=== PATIENT | female | born 1960 | race Caucasian/White ===

== ENCOUNTER 2017-01-02 12:27 | Outpatient (CLI) | payer OTHER ==
[2017-01-02 13:54] LABS: #Basophils 0.1 thou/uL (0.0-0.2); #Eosinphils 0.1 thou/uL (0.0-0.7); #Lymphocytes 1.4 thou/uL (1.20-3.40); #Monocytes 0.7 thou/uL (0.11-0.59); #Neutrophils 5.1 thou/uL (1.40-6.50); %Basophils 0.8 % (0.0-1.0); %Eosinophils 1.8 % (0.0-10.0); %Lymphocytes 18.3 % (21.0-51.0); %Monocytes 10.1 % (0.0-10.0); Hematocrit 39.1 % (36.0-47.0); Mean Platelet Volume 6.3 fL (7.4-10.4); Red Blood Cell (RBC) Count 4.47 mill/uL (4.20-5.40); White Blood Cell (WBC) Count 7.4 thou/uL (4.8-10.8)
[2017-01-02 14:17] LABS: ALT (SGPT) 19 U/L (0-55); AST (SGOT) 17 U/L (5-34); Alkaline Phosphatase 89 U/L (40-150); Anion Gap 15 mmol/L (10-20); BUN (Urea Nitrogen) 18 mg/dL (9.8-20.1); Bilirubin, Direct 0.2 mg/dL (0.1-0.3); Bilirubin, Total 0.5 mg/dL (0.2-1.2); Calc. Creatinine Clearance 0 mL/min (70-130); Calcium 9.4 mg/dL (7.8-10.44); Carbon Dioxide 22 mmol/L (22-29); Chloride 103 mmol/L (98-107); Estimated GFR-MDRD 45; Hemoglobin A1c 6.9 % (4.0-6.0); LDL Cholesterol, Calculated 87 mg/dL; Protein, Total 7.2 g/dL (6.0-8.3)
== END 2017-01-02 12:28 | disposition home or self-care (01) ==
LOC: NAVSJIPCSP 12:27
PROVIDERS: ATTEND Family Medicine
DX: E78.00 Pure hypercholesterolemia, unspecified (principal); E88.81 Metabolic syndrome and other insulin resistance; E03.9 Hypothyroidism, unspecified; I10 Essential (primary) hypertension; Z79.899 Other long term (current) drug therapy
CPT/HCPCS: 36415; 80048; 80061; 80076; 83036; 84443; 85025

== ENCOUNTER 2017-07-22 09:31 | Outpatient (CLI) | payer OTHER ==
[2017-07-22 12:39] LABS: #Eosinphils 0.1 thou/uL (0.0-0.7); #Lymphocytes 1.5 thou/uL (1.20-3.40); #Monocytes 0.5 thou/uL (0.11-0.59); #Neutrophils 3.3 thou/uL (1.40-6.50); %Basophils 0.9 % (0.0-1.0); %Eosinophils 1.9 % (0.0-10.0); %Lymphocytes 27.9 % (21.0-51.0); %Monocytes 8.4 % (0.0-10.0); %Neutrophils 60.9 % (42.0-75.0); Hemoglobin 11.9 g/dL (12.0-16.0); Mean Corpuscular HGB CONC 32.5 g/dL (32.0-36.0); Mean Corpuscular Hemoglobin 28.8 pg (27.0-31.0); Mean Corpuscular Volume 88.6 fl (81.0-99.0); Mean Platelet Volume 6.6 fL (7.4-10.4); Platelet Count 235 thou/uL (130-400); RBC Distribution Width 12.6 % (11.5-14.5); Red Blood Cell (RBC) Count 4.12 mill/uL (4.20-5.40); White Blood Cell (WBC) Count 5.4 thou/uL (4.8-10.8)
[2017-07-22 12:52] LABS: ALT (SGPT) 41 U/L (8-55); AST (SGOT) 42 U/L (5-34); Albumin 4.3 g/dL (3.5-5.0); Alkaline Phosphatase 89 U/L (40-150); Anion Gap 17 mmol/L (10-20); BUN (Urea Nitrogen) 20 mg/dL (9.8-20.1); Bilirubin, Total 0.5 mg/dL (0.2-1.2); Calc. Creatinine Clearance 0 mL/min (70-130); Calcium 9.3 mg/dL (7.8-10.44); Carbon Dioxide 20 mmol/L (22-29); Chloride 105 mmol/L (98-107); Estimated GFR-MDRD 46; Globulin 2.7 g/dL (2.4-3.5); Glucose 88 mg/dL (70-105); Potassium 4.5 mmol/L (3.5-5.1); Sodium 137 mmol/L (136-145)
[2017-07-23 08:29] LABS: Cardiac Risk 3.1 (Less than 4.5)
[2017-07-23 08:39] LABS: Hemoglobin A1c 5.2 % (4.0-6.0)
== END 2017-07-22 09:32 | disposition home or self-care (01) ==
LOC: NAVSJIPCSP 09:31
PROVIDERS: ATTEND Family Medicine
DX: E78.00 Pure hypercholesterolemia, unspecified (principal); E03.9 Hypothyroidism, unspecified; E11.9 Type 2 diabetes mellitus without complications; E88.81 Metabolic syndrome and other insulin resistance; Z79.899 Other long term (current) drug therapy
CPT/HCPCS: 36415; 80053; 80061; 83036; 84443; 85025

== ENCOUNTER 2017-09-30 18:20 | Emergency (ER) | payer OTHER ==
[2017-09-30 19:22] LABS: #Basophils 0.1 thou/uL (0.0-0.2); #Eosinphils 0.1 thou/uL (0.0-0.7); #Lymphocytes 2.3 thou/uL (1.20-3.40); #Monocytes 0.7 thou/uL (0.11-0.59); #Neutrophils 4.9 thou/uL (1.40-6.50); %Basophils 0.9 % (0.0-1.0); %Eosinophils 1.3 % (0.0-10.0); %Neutrophils 60.8 % (42.0-75.0); Hemoglobin 12.2 g/dL (12.0-16.0); Mean Corpuscular HGB CONC 31.3 g/dL (32.0-36.0); Mean Corpuscular Volume 92.7 fl (81.0-99.0); Mean Platelet Volume 7.5 fL (7.4-10.4); Platelet Count 241 thou/uL (130-400); RBC Distribution Width 12.2 % (11.5-14.5); Red Blood Cell (RBC) Count 4.21 mill/uL (4.20-5.40); White Blood Cell (WBC) Count 8.1 thou/uL (4.8-10.8)
[2017-09-30 19:28] LABS: ALT (SGPT) 19 U/L (8-55); AST (SGOT) 19 U/L (5-34); Albumin 4.3 g/dL (3.5-5.0); Alkaline Phosphatase 88 U/L (40-150); Anion Gap 17 mmol/L (10-20); BUN (Urea Nitrogen) 24 mg/dL (9.8-20.1); Bilirubin, Total 0.7 mg/dL (0.2-1.2); Calc. Creatinine Clearance 0 mL/min (70-130); Calcium 9.2 mg/dL (7.8-10.44); Carbon Dioxide 19 mmol/L (22-29); Chloride 105 mmol/L (98-107); Estimated GFR-MDRD 42; Globulin 3.2 g/dL (2.4-3.5); Glucose 101 mg/dL (70-105); Potassium 3.8 mmol/L (3.5-5.1); Protein, Total 7.5 g/dL (6.0-8.3); Sodium 137 mmol/L (136-145)
[2017-09-30 19:30] LABS: CKMB 0.8 ng/mL (0-6.6); Troponin I Less than 0.010 ng/mL (< 0.028)
--- NOTE | 2017-09-30 19:34 | RAD ---
CHEST 2 VIEWS: Date: 09/30/17 HISTORY: Dyspnea. COMPARISON: Chest 1 view dated 11/19/14. FINDINGS: Lungs are clear. No pneumothorax or effusion. Cardiac silhouette and mediastinal contours are similar . There is increased mediastinal fat. IMPRESSION: No acute intrathoracic abnormality. POS: [facility]
[2017-09-30] MEDS ORDERED: Sodium Chloride 0.9% 100 ML ONE (19:58)
[2017-09-30] MEDS ORDERED: methylPREDNISolone Sod Succ/PF 125 MG/2 ML VIAL ONE (19:58)
[2017-09-30] MEDS ORDERED: cefTRIAXone\\ROCEPHIN 1 GM VIAL ONE (19:58)
[2017-09-30] MEDS ORDERED: Sodium Chloride 0.9% 1,000 ML ONE (20:19)
== END 2017-09-30 20:44 | disposition short-term general hospital (02) ==
LOC: NAV ERS 18:20
DX: R09.02 Hypoxemia (principal); E78.5 Hyperlipidemia, unspecified; E66.9 Obesity, unspecified; E11.9 Type 2 diabetes mellitus without complications; I48.91 Unspecified atrial fibrillation; Z87.891 Personal history of nicotine dependence; Z79.82 Long term (current) use of aspirin; Z79.899 Other long term (current) drug therapy
CPT/HCPCS: 71020; 80053; 82553; 83880; 84484; 85025; 85379; 93005; 94760; 96365; 96375; J0696; J2930; J7050; J7620

== ENCOUNTER 2018-07-19 16:57 | Emergency (ER) | payer OTHER ==
[2018-07-19] MEDS ORDERED: Diltiazem 125 MG/25 ML ONE (17:08)
[2018-07-19 17:49] LABS: INR-International Normal Ratio 0.9; PTT 26.9 SEC (22.9-36.1); Prothrombin Time 12.6 SEC (12.0-14.7)
--- NOTE | 2018-07-19 17:49 | RAD ---
CHEST ONE VIEW 07/19/18 HISTORY: Chest pain. COMPARISON: Chest radiograph 11/19/14. FINDINGS: Heart size is enlarged. Pulmonary arteries are enlarged. Increased mediastinal fat. No pneumothorax. No acute osseous abnormality. IMPRESSION: Cardiomegaly and pulmonary arterial hypertension, unchanged. POS: [facility]
[2018-07-19 17:52] LABS: #Basophils 0.1 thou/uL (0.0-0.2); #Eosinphils 0.1 thou/uL (0.0-0.7); #Lymphocytes 3.7 thou/uL (1.20-3.40); #Monocytes 1.1 thou/uL (0.11-0.59); #Neutrophils 3.5 thou/uL (1.40-6.50); %Basophils 0.9 % (0.0-1.0); %Eosinophils 1.5 % (0.0-10.0); %Lymphocytes 43.7 % (21.0-51.0); %Monocytes 12.7 % (0.0-10.0); %Neutrophils 41.3 % (42.0-75.0); Hemoglobin 13.2 g/dL (12.0-16.0); Mean Corpuscular HGB CONC 33.4 g/dL (32.0-36.0); Mean Corpuscular Hemoglobin 29.4 pg (27.0-31.0); Mean Corpuscular Volume 88.1 fL (78.0-98.0); Mean Platelet Volume 7.1 fL (7.4-10.4); Platelet Count 275 thou/uL (130-400); RBC Distribution Width 12.1 % (11.5-14.5); Red Blood Cell (RBC) Count 4.49 mill/uL (4.20-5.40); White Blood Cell (WBC) Count 8.5 thou/uL (4.8-10.8)
[2018-07-19 17:59] LABS: CKMB 0.8 ng/mL (0-6.6); Troponin I Less than 0.010 ng/mL (< 0.028)
[2018-07-19 18:00] LABS: ALT (SGPT) 21 U/L (8-55); AST (SGOT) 22 U/L (5-34); Albumin 4.7 g/dL (3.5-5.0); Alkaline Phosphatase 110 U/L (40-150); Anion Gap 15 mmol/L (10-20); BUN (Urea Nitrogen) 31 mg/dL (9.8-20.1); Bilirubin, Total 0.9 mg/dL (0.2-1.2); CK (CPK) 86 U/L (29-168); Calc. Creatinine Clearance 0 mL/min (70-130); Calcium 9.8 mg/dL (7.8-10.44); Carbon Dioxide 20 mmol/L (22-29); Chloride 107 mmol/L (98-107); Estimated GFR-MDRD 34; Globulin 3.1 g/dL (2.4-3.5); Glucose 106 mg/dL (70-105); Potassium 4.2 mmol/L (3.5-5.1); Protein, Total 7.8 g/dL (6.0-8.3); Sodium 138 mmol/L (136-145)
[2018-07-19 20:04] LABS: CKMB 0.8 ng/mL (0-6.6); Troponin I Less than 0.010 ng/mL (< 0.028)
== END 2018-07-19 20:30 | disposition home or self-care (01) ==
LOC: NAV ERS 16:57
DX: I48.91 Unspecified atrial fibrillation (principal); E78.5 Hyperlipidemia, unspecified; E66.9 Obesity, unspecified; G47.30 Sleep apnea, unspecified; Z87.891 Personal history of nicotine dependence; Z79.82 Long term (current) use of aspirin; Z79.899 Other long term (current) drug therapy
CPT/HCPCS: 71045; 80053; 82550; 82553; 84443; 84484; 85025; 85610; 85730; 93005; 96374

== ENCOUNTER 2018-10-30 15:16 | Emergency (ER) | payer OTHER ==
--- NOTE | 2018-10-30 16:01 | RAD ---
FRONTAL VIEW CHEST: Date: 10/30/18 COMPARISON: 07/19/18. CLINICAL HISTORY: Emergency exam, recent onset shortness of breath, progressive. FINDINGS: There is enlargement of the cardiac silhouette with bilateral vascular congestion and interstitial pr ominence. Patchy density of the lower hemithoraces is seen, some of which may be related to component of pleural fluid. There is vascular calcification. Osseous structures intact. IMPRESSION: Findings favoring decompensated CHF. Recommend continued follow-up to resolution. POS: [facility]
[2018-10-30 16:05] LABS: #Basophils 0.1 thou/uL (0.0-0.2); #Eosinphils 0.1 thou/uL (0.0-0.7); #Lymphocytes 1.3 thou/uL (1.20-3.40); #Monocytes 0.4 thou/uL (0.11-0.59); #Neutrophils 5.5 thou/uL (1.40-6.50); %Basophils 0.9 % (0.0-1.0); %Eosinophils 1.2 % (0.0-10.0); %Lymphocytes 17.6 % (21.0-51.0); %Monocytes 5.9 % (0.0-10.0); %Neutrophils 74.3 % (42.0-75.0); Hemoglobin 12.9 g/dL (12.0-16.0); Mean Corpuscular HGB CONC 32.3 g/dL (32.0-36.0); Mean Corpuscular Hemoglobin 28.8 pg (27.0-31.0); Mean Corpuscular Volume 89.2 fL (78.0-98.0); Mean Platelet Volume 6.8 fL (7.4-10.4); Platelet Count 240 thou/uL (130-400); RBC Distribution Width 12.5 % (11.5-14.5); Red Blood Cell (RBC) Count 4.47 mill/uL (4.20-5.40); White Blood Cell (WBC) Count 7.4 thou/uL (4.8-10.8)
[2018-10-30 16:13] LABS: INR-International Normal Ratio 1.2; PTT 35.4 SEC (22.9-36.1); Prothrombin Time 14.9 SEC (12.0-14.7)
[2018-10-30 16:14] LABS: Lactic Acid 1.3 mmol/L (0.5-2.2)
[2018-10-30 16:19] LABS: ALT (SGPT) 20 U/L (8-55); AST (SGOT) 18 U/L (5-34); Albumin 4.3 g/dL (3.5-5.0); Alkaline Phosphatase 96 U/L (40-150); Anion Gap 15 mmol/L (10-20); BUN (Urea Nitrogen) 15 mg/dL (9.8-20.1); Bilirubin, Total 0.8 mg/dL (0.2-1.2); Calc. Creatinine Clearance 0 mL/min (70-130); Calcium 9.3 mg/dL (7.8-10.44); Carbon Dioxide 19 mmol/L (22-29); Chloride 111 mmol/L (98-107); Estimated GFR-MDRD 63; Globulin 2.6 g/dL (2.4-3.5); Glucose 113 mg/dL (70-105); Protein, Total 6.9 g/dL (6.0-8.3); Sodium 141 mmol/L (136-145)
[2018-10-30] MEDS ORDERED: methylPREDNISolone Sod Succ/PF 125 MG/2 ML VIAL ONE (16:35)
[2018-10-30] MEDS ORDERED: Azithromycin 500 MG VIAL ONE (18:30)
[2018-10-30] MEDS ORDERED: Sodium Chloride 0.9% 250 ML 250 ML ONE (18:30)
== END 2018-10-30 17:37 | disposition short-term general hospital (02) ==
LOC: NAV ERS 15:16
DX: J96.91 Respiratory failure, unspecified with hypoxia (principal); I48.91 Unspecified atrial fibrillation; E78.5 Hyperlipidemia, unspecified; I10 Essential (primary) hypertension; E66.9 Obesity, unspecified; G47.30 Sleep apnea, unspecified; Z87.891 Personal history of nicotine dependence; Z79.899 Other long term (current) drug therapy; Z79.82 Long term (current) use of aspirin
CPT/HCPCS: 36415; 71045; 80053; 83605; 83880; 84484; 85025; 85610; 85730; 87040; 87149; 93005; 94660; 96365; 96375; J0456; J2930; J7050

== ENCOUNTER 2019-11-03 09:23 | Inpatient (IN) | payer OTHER ==
--- NOTE | 2019-11-03 10:39 | RAD ---
XR Chest 1 View Portable HISTORY: Dyspnea, chest pain COMPARISON: 08/25/2019 FINDINGS: The heart size enlarged but stable. The lungs are expanded without lobar consolidation, pne umothoraces, ruby pulmonary edema or pleural effusions. IMPRESSION: No radiographic evidence of acute cardiopulmonary process.
[2019-11-03] MEDS ORDERED: methylPREDNISolone Sod Succ/PF 125 MG/2 ML VIAL ONE (10:41)
[2019-11-03 10:46] LABS: #Eosinphils 0.1 thou/uL (0.0-0.7); #Lymphocytes 1.8 thou/uL (1.20-3.40); #Monocytes 0.6 thou/uL (0.11-0.59); #Neutrophils 4.2 thou/uL (1.40-6.50); %Basophils 0.7 % (0.0-1.0); %Eosinophils 1.4 % (0.0-10.0); %Lymphocytes 26.4 % (21.0-51.0); %Monocytes 8.3 % (0.0-10.0); %Neutrophils 63.2 % (42.0-75.0); Hemoglobin 13.3 g/dL (12.0-16.0); Mean Corpuscular HGB CONC 32.2 g/dL (32.0-36.0); Mean Corpuscular Volume 89.8 fL (78.0-98.0); Mean Platelet Volume 7.1 fL (7.4-10.4); Platelet Count 251 thou/uL (130-400); RBC Distribution Width 13.1 % (11.5-14.5); Red Blood Cell (RBC) Count 4.58 mill/uL (4.20-5.40); White Blood Cell (WBC) Count 6.6 thou/uL (4.8-10.8)
[2019-11-03 11:07] LABS: ALT (SGPT) 17 U/L (8-55); AST (SGOT) 22 U/L (5-34); Albumin 4.5 g/dL (3.5-5.0); Alkaline Phosphatase 78 U/L (40-110); Anion Gap 16 mmol/L (10-20); BUN (Urea Nitrogen) 16 mg/dL (9.8-20.1); Bilirubin, Total 0.7 mg/dL (0.2-1.2); Calc. Creatinine Clearance 0 mL/min (70-130); Calcium 9.4 mg/dL (7.8-10.44); Carbon Dioxide 21 mmol/L (22-29); Chloride 108 mmol/L (98-107); Estimated GFR-MDRD 52; Globulin 2.7 g/dL (2.4-3.5); Glucose 93 mg/dL (70-105); Magnesium 2.1 mg/dL (1.6-2.6); Potassium 4.4 mmol/L (3.5-5.1); Protein, Total 7.2 g/dL (6.0-8.3); Sodium 141 mmol/L (136-145)
[2019-11-03] MEDS ORDERED: Aspirin Chewable 81 MG TAB ONE (11:36)
[2019-11-03] MEDS ORDERED: Azithromycin 500 MG VIAL ONE (11:37)
[2019-11-03] MEDS ORDERED: Sodium Chloride 0.9% 250 ML 250 ML ONE (11:37)
[2019-11-03 12:56] VITALS: BMI 44.8
[2019-11-03] MEDS ORDERED: Ondansetron PF 4 MG/2 ML Vial SLOW IVP PRN (13:29)
[2019-11-03 14:25] LABS: Troponin I Less than 0.010 ng/mL (< 0.028)
[2019-11-03] MEDS: Gabapentin 300 MG CAP PO SCH ×2 (15:56→20:19)
--- NOTE | 2019-11-03 16:44 | HP ---
HISTORY OF PRESENT ILLNESS: Ms. Rosado is a 59-year-old white female, who presents to the emergency room with hypoxemia. She states it started approximately 2 weeks ago and she has gradually been getting worse and worse. She said over [place] that she got more and more short of breath, and now occasionally when she walks around, she gets some tightness in her chest. Resting oxygen saturation was 86%, when she walked around, it dropped into the low 70s. She was seen in the emergency room by Dr. Jackson, who felt that she most likely had acute exacerbation of her COPD versus asthma. Given her breathing treatment which did not help very much, she was given IV steroids, IV azithromycin, and small amount of fluid. It was felt that she would require further treatment in the hospital since she has this every year about this time for the last 3 years. 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 PAST MEDICAL HISTORY: Significant for; 1. Atrial fibrillation. 2. Hypertension. 3. Sleep apnea, on CPAP. 4. Hypercholesterolemia. 5. Allergic rhinitis. 6. Possible COPD versus asthma. PAST SURGICAL HISTORY: 1. Hysterectomy in 1985. 2. Appendectomy in 1983. FAMILY HISTORY: Reveals the patient's father at age 81 of Alzheimer's along with diabetes, hypertension, heart disease, and stroke. The patient's mother is alive at age 87 and she has some dementia, arthritis, hypertension, stage 4 chronic kidney disease. The patient has 1 brother with hypertension. Paternal grandfather with lung cancer. SOCIAL HISTORY: Reveals the patient stopped smoking about 20 years ago and has a 19-year history of smoking. She does not do alcohol or drugs, and no significant exercise at this time. She is and cares for her mother and her . ALLERGIES: SHE IS ALLERGIC TO ZYRTEC. REVIEW OF SYSTEMS: CONSTITUTIONAL: The patient denies fever, chills, or night sweats. She is diaphoretic, especially when she walks around. Denies weight loss or weight gain or change in appetite. HEENT: The patient denies any change in vision. The patient denies any change in hearing. The patient denies any sinus pressure, headache, but does admit to nasal congestion, rhinorrhea. She does have some postnasal drainage. Denies sore throat, change in vocal quality. CARDIOVASCULAR: The patient denies chest pain, but does have some tightness in her chest when her oxygen gets in the low 70s and early 60s, but no specific chest pain. She does have a history of irregular heartbeat in the distant past, atrial fibrillation. Denies any shortness of breath, and then she walks around a lot. RESPIRATORY: The patient does have some dyspnea on exertion. Has been coughing a little bit, but denies any wheezing. She states her nebulizer treatment did not really help her much and she has been doing those at about twice a day. GASTROINTESTINAL: The patient denies abdominal pain, nausea, vomiting, diarrhea , bloody or black tarry stools. MUSCULOSKELETAL: The patient denies joint pain, joint stiffness, achiness, or myalgias. INTEGUMENT: The patient denies rashes or skin lesions or bruises. NEUROLOGIC: The patient denies any specific headaches, lightheadedness, focal deficits, sleep problems, or syncope. PSYCHIATRIC: The patient has some stressors with [place], but otherwise no anxiety or depressive disorder. PRESENT MEDICATIONS: Include the following; 1. Eliquis 5 mg b.i.d. 2. Atorvastatin 40 mg at bedtime. 3. Diltiazem q.24 hours 120 mg daily. 4. Multaq 400 mg twice a day. 5. Lasix 20 mg on Saturday, Saturday, and Saturday. 6. Gabapentin 600 mg three times a day. 7. Lisinopril 5 mg daily. 8. Singulair 10 mg at bedtime. 9. Asmanex two puffs b.i.d. 10. Zofran 4 mg IV q.6 hours p.r.n. nausea and vomiting. 11. Handheld nebulizers b.i.d. and p.r.n. 12. Aspirin 81 mg daily. 13. Azithromycin 500 mg daily. 14. Solu-Medrol q.12 hours. PHYSICAL EXAMINATION: GENERAL: This is a well-developed, well-nourished, somewhat obese white female , who is in no respiratory distress at this time. HEENT: Normocephalic and nontraumatic cranium. Pupils are equally round and reactive. Extraocular movements are intact. Nose and throat are slightly dry, but clear. NECK: Supple without masses, nodes, or bruits. No jugular venous distention is noted. NECK: Supple without masses, nodes, or bruits. CHEST: Reveals a regular rate and rhythm. No murmurs, gallops, or rubs are noted. RESPIRATORY: The patient is saturating 92% to 96% on 2 L now. In the ER, she was 86% to 88% on 2 L, and then off her oxygen, she was 74% to 76%. She has no wheezes, no rhonchi, but a dry cough. GI: She has normal bowel sounds. No rebound or guarding is noted. No masses are noted. : Deferred. EXTREMITIES: Reveal no clubbing, cyanosis, or edema. PSYCHIATRIC: The patient is stable. ASSESSMENT: 1. Most likely, acute exacerbation of chronic obstructive pulmonary disease versus asthma. 2. Hypertension. 3. Hypercholesterolemia. 4. Sleep apnea, on CPAP. 5. History of allergic rhinitis. 6. Possible acute exacerbation of chronic obstructive pulmonary disease. 7. History of atrial fibrillation. PLAN: 1. The patient is admitted to the hospital. We will continue her on her azithromycin daily. 2. The patient will have DuoNeb b.i.d. and p.r.n. 3. The patient will continue with Solu-Medrol 125 mg tomorrow morning and then most likely be switched over to oral steroids. 4. Continue previous home medications as ordered. 5. Anticipated length of stay is probably about 2, possibly 3 days. Job ID: [id number] [facility]
[2019-11-03 17:27] LABS: Troponin I Less than 0.010 ng/mL (< 0.028)
[2019-11-03] MEDS: Atorvastatin Calcium 40 MG TAB PO SCH (20:18)
[2019-11-03] MEDS: Apixaban 5 MG TAB PO SCH (20:18)
[2019-11-03] MEDS: Mometasone Furoate 120 PUFF 220 MCG INH SCH (20:19)
[2019-11-03] MEDS: Dronedarone HCl 400 MG TAB PO SCH (20:19)
[2019-11-03] MEDS: Montelukast Sodium 10 mg Tablet PO SCH (20:20)
[2019-11-04] MEDS ORDERED: Furosemide 40 MG TAB PO SCH (09:00)
[2019-11-04] MEDS: Gabapentin 300 MG CAP PO SCH ×3 (09:10→20:25)
[2019-11-04] MEDS: Lisinopril 10 MG TAB PO SCH (09:11)
[2019-11-04] MEDS: Dronedarone HCl 400 MG TAB PO SCH ×2 (09:11→20:25)
[2019-11-04] MEDS: Apixaban 5 MG TAB PO SCH ×2 (09:12→20:25)
[2019-11-04] MEDS: Mometasone Furoate 120 PUFF 220 MCG INH SCH ×2 (09:13→20:26)
--- NOTE | 2019-11-04 19:55 | PRG ---
DATE OF SERVICE: 11/04/2019 SUBJECTIVE: The patient feels well today at rest with no complaints and is asking when she can be discharged home. Dr. Henry has wished her to weaning off IV steroids and monitor her on oxygen to hopefully discharge home off oxygen. OBJECTIVE: LUNGS: With decreased breath sounds. CARDIAC: Regular rhythm. No gallops or murmurs. ABDOMEN: Soft and nontender. ASSESSMENT: 1. Resolving exacerbation of asthma. 2. Stable atrial fibrillation. 3. Stable obstructive sleep apnea. PLAN: 1. Start prednisone 40 mg daily. 2. Start Zithromax 250 p.o. daily as she received IV steroids and IV Zithromax in emergency room. 3. Start PT tomorrow and monitor vital signs during therapy as well as oxygen saturation and hopefully discharge home in the next several days either on or off oxygen. Job ID: [id number]
--- NOTE | 2019-11-04 20:05 | PRG ---
DATE OF SERVICE: 11/04/2019 SUBJECTIVE: The patient is a 59-year-old white female, patient of Dr. Madiha Henry, with a history of atrial fibrillation, hypertension, sleep apnea, and asthmatic bronchitis, who has been doing well until approximately 2 or 3 weeks ago began having increasing dyspnea on exertion despite using her Asmanex handheld nebulizers. She was seen in the emergency room and found to be significantly hypoxic with O2 saturation of 70s compared to her baseline of 88 to 92. She was treated with IV steroids, IV antibiotics in the emergency room and started on supplemental oxygen. She has been on oxygen in the past, but none in the last 6 months. She now feels well with no symptoms at rest and has been walking up in the room, but has not had physical therapy. She does not notice any shortness of breath at rest, chest pain, wheezing, cough, fever, or chills. OBJECTIVE: VITAL SIGNS: Temperature is 96.2, pulse 64, respirations 16, O2 saturation. DICTATIONS ENDS HERE Job ID: [id number]
[2019-11-04] MEDS: Atorvastatin Calcium 40 MG TAB PO SCH (20:25)
[2019-11-04] MEDS: Montelukast Sodium 10 mg Tablet PO SCH (20:25)
[2019-11-05] MEDS: Apixaban 5 MG TAB PO SCH ×2 (09:41→20:44)
[2019-11-05] MEDS: Azithromycin 250 MG TAB PO SCH (09:41)
[2019-11-05] MEDS: Gabapentin 300 MG CAP PO SCH ×3 (09:41→20:44)
[2019-11-05] MEDS: predniSONE 20 MG TAB PO SCH (09:41)
[2019-11-05] MEDS: Dronedarone HCl 400 MG TAB PO SCH ×2 (09:42→20:44)
[2019-11-05] MEDS: Lisinopril 10 MG TAB PO SCH (09:42)
[2019-11-05] MEDS: Mometasone Furoate 120 PUFF 220 MCG INH SCH ×2 (09:46→20:42)
[2019-11-05] MEDS: Atorvastatin Calcium 40 MG TAB PO SCH (20:44)
[2019-11-05] MEDS: Montelukast Sodium 10 mg Tablet PO SCH (20:45)
--- NOTE | 2019-11-05 22:09 | PRG ---
DATE OF SERVICE: 11/05/2019 This is a patient of Dr. Madiha Henry. SUBJECTIVE: The patient feels well, sitting up, visiting with her . She has been walking with therapy. She is having improving dyspnea, but is still significantly hypoxic and requires 3.5 L of oxygen when ambulating to maintain a sat greater than 90%. She states she had required oxygen last year home patient and wishes to have that ordered again. OBJECTIVE: Shows her blood pressure is 130/61, temperature is 97, pulse 73, respirations 20, O2 sats 94% on 2.5 liters. LUNGS: Clear with good breath sounds. CARDIAC: Regular rhythm. ABDOMEN: Soft, nontender. ASSESSMENT: Improving asthmatic bronchitis with hypoxemia. PLAN: 1. Continue on oral prednisone. 2. Schedule outpatient oxygen therapy. 3. Continue 250 mg of Zithromax for the next 3 days. 4. Plan on discharge tomorrow on oxygen as patient is only able to maintain a sat of 88 to 90 percent while walking on 3.5 L of oxygen. Job ID: [id number]
[2019-11-06] MEDS: Mometasone Furoate 120 PUFF 220 MCG INH SCH ×2 (08:48→20:40)
[2019-11-06] MEDS: Gabapentin 300 MG CAP PO SCH ×3 (08:49→21:09)
[2019-11-06] MEDS: Azithromycin 250 MG TAB PO SCH (08:49)
[2019-11-06] MEDS: Lisinopril 5 MG TAB PO SCH (08:49)
[2019-11-06] MEDS: Furosemide 20 MG TAB PO SCH (08:49)
[2019-11-06] MEDS: Apixaban 5 MG TAB PO SCH ×2 (08:49→21:09)
[2019-11-06] MEDS: Dronedarone HCl 400 MG TAB PO SCH ×2 (08:49→21:10)
[2019-11-06] MEDS: predniSONE 20 MG TAB PO SCH (08:50)
[2019-11-06] MEDS: Atorvastatin Calcium 40 MG TAB PO SCH (21:09)
[2019-11-06] MEDS: Montelukast Sodium 10 mg Tablet PO SCH (21:09)
[2019-11-07] MEDS: Gabapentin 300 MG CAP PO SCH ×3 (09:21→20:50)
[2019-11-07] MEDS: predniSONE 20 MG TAB PO SCH (09:21)
[2019-11-07] MEDS: Dronedarone HCl 400 MG TAB PO SCH ×2 (09:21→20:50)
[2019-11-07] MEDS: Azithromycin 250 MG TAB PO SCH (09:22)
[2019-11-07] MEDS: Apixaban 5 MG TAB PO SCH ×2 (09:22→20:50)
[2019-11-07] MEDS: Lisinopril 5 MG TAB PO SCH (09:23)
[2019-11-07] MEDS: Mometasone Furoate 120 PUFF 220 MCG INH SCH ×2 (09:24→20:49)
[2019-11-07] MEDS: Montelukast Sodium 10 mg Tablet PO SCH (20:50)
[2019-11-07] MEDS: Atorvastatin Calcium 40 MG TAB PO SCH (20:50)
--- NOTE | 2019-11-08 07:56 | PRG ---
DATE OF SERVICE: 11/06/2019 SUBJECTIVE: The patient feels well on oral antibiotics and prednisone, but still requiring oxygen supplementation. However, it is determined that she needs to be discharged home on the oxygen, but her insurance will not pay until she is off antibiotics. OBJECTIVE: VITAL SIGNS: Shows temperature is 96.1, pulse 56, respirations 24, O2 sats 94% on 2.5 L, blood pressure 132/64. LUNGS: Clear. CARDIAC: Shows irregular rhythm. ABDOMEN: Soft and nontender. ASSESSMENT: Resolving exacerbation of asthma on handheld nebulizers and steroids, feeling well, but with persistent hypoxemia on exertion with inability to maintain sats above 85% with exertion off oxygen and in fact with oxygen occasionally drops below this and requires rest. PLAN: Continue on supplemental oxygen. Finish antibiotics tomorrow. Continue in the hospital until antibiotics finish and then possibly discharge home on oxygen. Job ID: [id number]
--- NOTE | 2019-11-08 08:24 | PRG ---
DATE OF SERVICE: 11/07/2019 SUBJECTIVE: The patient is sitting in the room, visiting with , feels well, but states she did walk today and did have her oxygen saturation dropped to less than 85% on oxygen while walking and drop to less than 80% at rest off oxygen. She is having no cough, wheezing, chills, fever. OBJECTIVE: 1. Persistent hypoxemia secondary to asthmatic bronchitis. 2. Stable atrial fibrillation with no evidence of exacerbation of congestive heart failure. 3. Hypertension, controlled to goal. 4. Obstructive sleep apnea, stable on continuous positive airway pressure with no need for oxygen at night while on continuous positive airway pressure. PLAN: 1. Continue oxygen supplementation. Maintain sats greater than 90%. 2. Continue prednisone 40 mg daily. 3. Finish the Zithromax tomorrow. 4. Continue home medications. 5. Continue CPAP at night. Job ID: [id number]
[2019-11-08] MEDS: Azithromycin 250 MG TAB PO SCH (09:06)
[2019-11-08] MEDS: Apixaban 5 MG TAB PO SCH ×2 (09:06→21:08)
[2019-11-08] MEDS: predniSONE 20 MG TAB PO SCH (09:06)
[2019-11-08] MEDS: Gabapentin 300 MG CAP PO SCH ×3 (09:07→21:08)
[2019-11-08] MEDS: Lisinopril 5 MG TAB PO SCH (09:08)
[2019-11-08] MEDS: Mometasone Furoate 120 PUFF 220 MCG INH SCH ×2 (09:09→21:07)
[2019-11-08] MEDS: Dronedarone HCl 400 MG TAB PO SCH ×2 (09:09→21:08)
[2019-11-08 13:12] LABS: #Lymphocytes 1.2 thou/uL (1.20-3.40); #Monocytes 0.3 thou/uL (0.11-0.59); #Neutrophils 9.4 thou/uL (1.40-6.50); %Basophils 0.4 % (0.0-1.0); %Eosinophils 0.1 % (0.0-10.0); %Lymphocytes 10.7 % (21.0-51.0); %Monocytes 2.4 % (0.0-10.0); %Neutrophils 86.4 % (42.0-75.0); Hemoglobin 14.6 g/dL (12.0-16.0); Mean Corpuscular HGB CONC 31.5 g/dL (32.0-36.0); Mean Corpuscular Hemoglobin 28.6 pg (27.0-31.0); Mean Corpuscular Volume 90.9 fL (78.0-98.0); Mean Platelet Volume 6.8 fL (7.4-10.4); Platelet Count 318 thou/uL (130-400); RBC Distribution Width 12.8 % (11.5-14.5); White Blood Cell (WBC) Count 10.9 thou/uL (4.8-10.8)
[2019-11-08 13:27] LABS: ALT (SGPT) 17 U/L (8-55); AST (SGOT) 14 U/L (5-34); Albumin 4.5 g/dL (3.5-5.0); Alkaline Phosphatase 86 U/L (40-110); Anion Gap 16 mmol/L (10-20); BUN (Urea Nitrogen) 21 mg/dL (9.8-20.1); Bilirubin, Total 0.6 mg/dL (0.2-1.2); Calc. Creatinine Clearance 100 mL/min (70-130); Calcium 9.1 mg/dL (7.8-10.44); Carbon Dioxide 21 mmol/L (22-29); Chloride 103 mmol/L (98-107); Estimated GFR-MDRD 48; Globulin 2.8 g/dL (2.4-3.5); Glucose 133 mg/dL (70-105); Potassium 4.7 mmol/L (3.5-5.1); Protein, Total 7.3 g/dL (6.0-8.3); Sodium 135 mmol/L (136-145)
[2019-11-08] MEDS: Montelukast Sodium 10 mg Tablet PO SCH (21:08)
[2019-11-08] MEDS: Atorvastatin Calcium 40 MG TAB PO SCH (21:08)
--- NOTE | 2019-11-08 22:05 | PRG ---
DATE OF SERVICE: 11/08/2019 SUBJECTIVE: The patient feels well, sitting up, playing cards with her daughter, still require significant oxygen 4 L when she walks, 3.5 L at rest. No dyspnea, or chest pain, or palpitations. Did have some significant possible arrhythmia on telemetry, but appears to be an artifact. EKG was normal. Laboratories have been normal. OBJECTIVE: LUNGS: Clear. CARDIAC: Shows regular rhythm. ABDOMEN: Soft and nontender. ASSESSMENT: 1. Hypoxic respiratory failure. 2. Asthmatic bronchitis. 3. Atrial fibrillation, rate controlled. PLAN: 1. Finish antibiotics. Hopefully, discharge home on oxygen tomorrow as approved by insurance. Job ID: [id number]
[2019-11-09 05:22] LABS: Platelet Count 275 thou/uL (130-400)
[2019-11-09] MEDS: Gabapentin 300 MG CAP PO SCH ×3 (08:10→20:23)
[2019-11-09] MEDS: predniSONE 20 MG TAB PO SCH (08:10)
[2019-11-09] MEDS: Apixaban 5 MG TAB PO SCH ×2 (08:10→20:22)
[2019-11-09] MEDS: Furosemide 20 MG TAB PO SCH (08:11)
[2019-11-09] MEDS: Dronedarone HCl 400 MG TAB PO SCH ×2 (08:11→20:23)
[2019-11-09] MEDS: Lisinopril 5 MG TAB PO SCH (08:11)
[2019-11-09] MEDS: Mometasone Furoate 120 PUFF 220 MCG INH SCH ×2 (08:12→20:22)
--- NOTE | 2019-11-09 10:50 | DIS ---
DATE OF ADMISSION: 11/03/2019 DATE OF DISCHARGE: 11/10/2019 HISTORY: Ms. Rosado is a 59-year-old white female, now was admitted with acute bronchitis, hypoxic respiratory failure, asthmatic bronchitis, atrial fib rate controlled. The patient was treated with azithromycin and prednisone. The patient has now finished azithromycin. She continues to require oxygen continuously when she walks. Her oxygen saturations go in the mid to low 80s. She will need to be qualified to be discharged home on oxygen. We will try to qualify her today and then hopefully she will be discharged. PHYSICAL EXAMINATION: VITAL SIGNS: Today reveal blood pressure is 135/62, pulse 62 to 61, respirations 16 to 17, O2 saturation on 2.5 L is 97%. While she is walking off oxygen, it is dipping down to 82% when they decided to restart the oxygen. GENERAL: This is a well-developed, well-nourished, very pleasant 59-year-old white female, in no apparent distress at this time. HEENT: Normocephalic and nontraumatic cranium. Pupils are equally round and reactive. Extraocular movements are intact. Nose and throat are slightly dry. NECK: Supple without masses, nodes, or bruits. CHEST: Clear to auscultation. No rales, no rhonchi, no wheezes are heard. HEART: Reveals a regular rate and rhythm with rate controlled atrial fibrillation. LUNGS: Reveal no rales, no rhonchi, no wheezes, just hypoxemia. ABDOMEN: Obese, soft, nontender without organomegaly. Normal bowel sounds are noted. No rebound or guarding is noted. EXTREMITIES: Reveal no clubbing, cyanosis, or edema. : Deferred. ASSESSMENT: 1. Exacerbation of asthma, on handheld nebulizers and steroids, have finished her antibiotics. 2. Persistent hypoxemia with exertion, which drops below 82% with any exertion, so the patient requires oxygenation. 3. Atrial fibrillation. 4. Hypertension. 5. Sleep apnea, on CPAP. 6. Hypercholesterolemia. 7. Allergic rhinitis. 8. Possible chronic obstructive pulmonary disease versus asthma. PLAN: 1. The patient hopefully will get qualify for oxygen and we can discharge her to get oxygen to her house this evening. If she does not qualify, then she will need to stay in the hospital an extra day until we can get her qualified. At this time , she continues to drop her oxygen saturations with any exertion. 2. Continue DuoNeb b.i.d. and p.r.n. 3. Continue prednisone 20 mg daily for another 5 days. 4. Continue previous home medications. 5. Wean her oxygen as able. 6. Will get an appointment with Dr Mahin Aragon for follow-up. DISCHARGE MEDICATIONS: Include the followin. Eliquis 5 mg b.i.d. 2. Atorvastatin 40 h.s. 3. Diltiazem 120 mg daily. 4. Multaq 400 mg b.i.d. 5. Lasix 20 mg on Saturday, Saturday, Saturday. 6. Gabapentin 600 mg t.i.d. 7. Lisinopril 5 mg daily. 8. Singulair 10 mg daily. 9. Asmanex 2 puffs b.i.d. 10. Zofran 4 mg p.r.n. nausea and vomiting. 11. Aspirin 81 mg. 12. Prednisone 20 mg dailyfor 7 days. [facility] ID: [id number] [facility]
[2019-11-09] MEDS: Atorvastatin Calcium 40 MG TAB PO SCH (20:23)
[2019-11-09] MEDS: Montelukast Sodium 10 mg Tablet PO SCH (20:23)
[2019-11-10] MEDS ORDERED: predniSONE 20 MG TAB PO SCH (08:00)
[2019-11-10 08:21] VITALS: TEMP 96.8
[2019-11-10] MEDS: Mometasone Furoate 120 PUFF 220 MCG INH SCH (08:59)
[2019-11-10] MEDS: Dronedarone HCl 400 MG TAB PO SCH (09:00)
[2019-11-10] MEDS: Gabapentin 300 MG CAP PO SCH (09:00)
[2019-11-10] MEDS: Apixaban 5 MG TAB PO SCH (09:00)
[2019-11-10] MEDS: Lisinopril 5 MG TAB PO SCH (09:01)
[2019-11-10 09:02] VITALS: BP 135/62
--- NOTE | 2019-11-10 10:59 | PRG ---
DATE OF SERVICE: 11/09/2019 SUBJECTIVE: Ms. Rosado is a well-developed, well-nourished, very pleasant 59-year-old white female, who was admitted in respiratory distress. She had acute bronchitis, hypoxic respiratory failure, asthmatic bronchitis, and atrial fibrillation which was rate controlled. She was treated with azithromycin, initially treated with IV antibiotics, switched over to erythromycin and prednisone. She has now finished antibiotics, but still continues to require oxygen. Her oxygen saturation while walking off oxygen is 82, when they decided to put the oxygen back on. Typically, she goes below that. She is ready for discharge. We are waiting to get oxygen at her home. She will continue with physical therapy after she gets discharged. States, she is ready to go home, but we have to make sure that her oxygen can get delivered to her home and here so she can get home. PHYSICAL EXAMINATION: GENERAL: This is a well-developed, well-nourished, very pleasant white female, states she feels much better and is not coughing and not having difficulty breathing. She is somewhat concerned that oxygen continues to go down when she walks around. She does have an oxygen sensor that she uses at home when she walks around if need be, but it never goes in the low 80s. HEENT: Normocephalic and nontraumatic cranium. Pupils equal, round, and reactive. Extraocular movements are intact. Nose and throat are slightly dry. NECK: Supple without masses, nodes, or bruits. CHEST: Clear to auscultation. No rales or rhonchi. No wheezes are heard. The bases are exceedingly clear. HEART: Reveals an irregular rate and rhythm, but rate controlled on atrial fibrillation. ABDOMEN: Soft, nontender without organomegaly. Normal bowel sounds are noted. No rebound or guarding is noted. : Deferred. EXTREMITIES: Reveal no clubbing, cyanosis, or edema. ASSESSMENT: 1. Acute exacerbation of asthma on handheld nebulizers and steroids. 2. Finished her azithromycin antibiotics. 3. Persistent hypoxemia with exertion which drops below 82% while walking when she is off oxygen. 4. Atrial fibrillation. 5. Hypertension. 6. Sleep apnea, on continuous positive airway pressure at night. 7. Hypercholesterolemia. 8. Allergic rhinitis. 9. Chronic obstructive pulmonary disease exacerbation versus asthma attack. PLAN: 1. The patient hopefully will get oxygen today, so we can get her discharged. 2. Continue DuoNeb b.i.d. and p.r.n. 3. Continue prednisone 20 mg for another seven days. 4. Continue previous home medications. 5. Wean oxygen as able. 6. Followup appointment with Dr. Aragon. Job ID: [id number]
--- NOTE | 2019-11-12 05:26 | PQF ---
[employer] Crystal Reports Winform ViewerMARLAALFREDITO JOE Sonya EISENBERG MD [id number] CLINICAL DOCUMENTATION CLARIFICATION FORM: POST DISCHARGE Addendum to original discharge summary date: ____ Late entry note date: __ DATE:11/12/2019 ATTN:Sonya EISENBERG MD Please exercise your independent, professional judgment in responding to the clarification form. Clinical indicators are provided on the bottom of this form for your review Please check appropriate box(s): [ ] Acute Hypoxic Respiratory Failure [ ] Chronic Hypoxic Respiratory Failure [ ] Acute on chronic Hypoxic Respiratory Failure [ ] Hypoxic Respiratory Failure unspecified [ ] Other diagnosis [ ] Unable to determine In addition, please specify: Present on Admission (POA): [ ] Yes [ ] No [ ] Unable to determine For continuity of documentation, please document condition throughout progress notes and discharge summary. Thank You. CLINICAL INDICATORS - SIGNS / SYMPTOMS / LABS Hypoxic Respiratory Failure - Documented in DS on 11/10 by Sonya EISENBERG MD Persistent hypoxemia with exertion which drop below 82% with any exertion so the patient require oxygenation - Documented in DS on 11/10 by Sonya EISENBERG MD O2 saturation 92%on 11/03 , 73% 11/05 , 87% on 11/06 - Documented in Vital Signs Asthma Exacerbation - Documented in DS on 11/10 by Sonya EISENBERG MD [employer] Sleep apnea on CPAP - Documented in DS on 11/10 by Sonya EISENBERG MD COPD Asthmatic bronchitis TREATMENTS: Patient will continue Solu-Medrol 125 mg - Documented in H&P on 11/03 by Sonya EISENBERG MD Handheld nebulizers and steroids - Documented in DS on 11/10 by Sonya EISENBERG MD O2 delivery Nasal Cannula, BIPAP [employer] Crystal Reports Winform Viewer (This form is maintained as a part of the permanent medical record) 2014 [employer] All Rights Reserved [email or web address] [not provided] MTDD
== END 2019-11-10 12:53 | disposition home or self-care (01) | DRG 202 ==
LOC: NAV ERS 09:23 → NAV ACUTE 12:40
PROVIDERS: ADMIT Family Medicine; ATTEND Family Medicine
DX: J45.901 Unspecified asthma with (acute) exacerbation (principal); J96.91 Respiratory failure, unspecified with hypoxia; Z68.41 Body mass index [BMI] 40.0-44.9, adult; I48.91 Unspecified atrial fibrillation; I10 Essential (primary) hypertension; Z90.49 Acquired absence of other specified parts of digestive tract; Z90.710 Acquired absence of both cervix and uterus; Z87.891 Personal history of nicotine dependence; Z88.8 Allergy status to other drugs, medicaments and biological substances; Z79.899 Other long term (current) drug therapy; Z79.82 Long term (current) use of aspirin; J30.9 Allergic rhinitis, unspecified; G47.33 Obstructive sleep apnea (adult) (pediatric); E66.01 Morbid (severe) obesity due to excess calories; E78.5 Hyperlipidemia, unspecified; E78.00 Pure hypercholesterolemia, unspecified; J20.9 Acute bronchitis, unspecified
CPT/HCPCS: 36415; 71045; 80053; 82565; 83735; 83880; 84484; 85014; 85018; 85025; 85049; 93005; 94664; 94760; 96365; J0456; J2930; J7050; J7512; J7620

== ENCOUNTER 2020-02-09 10:30 | Emergency (ER) | payer OTHER | END 2020-02-09 11:38 | disposition home or self-care (01) | LOC: NAV ERS 10:30 | DX: I48.91 Unspecified atrial fibrillation (principal); I10 Essential (primary) hypertension; E78.5 Hyperlipidemia, unspecified; E78.00 Pure hypercholesterolemia, unspecified; E66.9 Obesity, unspecified; G47.30 Sleep apnea, unspecified; J45.909 Unspecified asthma, uncomplicated; Z87.891 Personal history of nicotine dependence; Z79.899 Other long term (current) drug therapy | CPT/HCPCS: 93005 ==

== ENCOUNTER 2020-09-29 15:35 | Emergency (ER) | payer BC ==
[2020-09-29] MEDS ORDERED: traMADol HCl 50 MG TAB ONE (16:28)
[2020-09-29 16:33] LABS: #Basophils 0.1 thou/uL (0.0-0.2); #Eosinphils 0.1 thou/uL (0.0-0.7); #Lymphocytes 1.3 thou/uL (1.20-3.40); #Monocytes 0.6 thou/uL (0.11-0.59); #Neutrophils 6.6 thou/uL (1.40-6.50); %Basophils 1.4 % (0.0-1.0); %Eosinophils 1.1 % (0.0-10.0); %Lymphocytes 15.2 % (21.0-51.0); %Monocytes 7.1 % (0.0-10.0); %Neutrophils 75.2 % (42.0-75.0); Hemoglobin 13.3 g/dL (12.0-16.0); Mean Corpuscular HGB CONC 32.6 g/dL (32.0-36.0); Mean Corpuscular Hemoglobin 29.5 pg (27.0-31.0); Mean Corpuscular Volume 90.5 fL (78.0-98.0); Mean Platelet Volume 7.3 fL (7.4-10.4); Platelet Count 228 thou/uL (130-400); RBC Distribution Width 13.3 % (11.5-14.5); Red Blood Cell (RBC) Count 4.52 mill/uL (4.20-5.40); White Blood Cell (WBC) Count 8.8 thou/uL (4.8-10.8)
--- NOTE | 2020-09-29 16:43 | RAD ---
2 VIEWS CHEST: Date: 09/29/2020 PROVIDED CLINICAL HISTORY: Chest pain. FINDINGS: Comparison with 12/31/2019. Cardiac silhouette remains enlarged. Prominence of the main pulmonary artery segment persists. Vascul ar calcifications again noted. No focal consolidation, pleural fluid, or pneumothorax apparent. IMPRESSION: No evidence for an acute cardiopulmonary process. POS: [facility]
[2020-09-29 16:52] LABS: ALT (SGPT) 17 U/L (8-55); AST (SGOT) 19 U/L (5-34); Alkaline Phosphatase 76 U/L (40-110); Anion Gap 17 mmol/L (10-20); BUN (Urea Nitrogen) 21 mg/dL (9.8-20.1); Bilirubin, Total 0.8 mg/dL (0.2-1.2); Calc. Creatinine Clearance 0 mL/min (70-130); Calcium 8.7 mg/dL (7.8-10.44); Carbon Dioxide 18 mmol/L (22-29); Chloride 109 mmol/L (98-107); Estimated GFR-MDRD 34; Globulin 2.6 g/dL (2.4-3.5); Glucose 95 mg/dL (70-105); Potassium 4.6 mmol/L (3.5-5.1); Protein, Total 6.6 g/dL (6.0-8.3); Sodium 139 mmol/L (136-145)
== END 2020-09-29 17:20 | disposition home or self-care (01) ==
LOC: NAV ERS 15:35
DX: S29.011A Strain of muscle and tendon of front wall of thorax, initial encounter (principal); I48.91 Unspecified atrial fibrillation; E78.5 Hyperlipidemia, unspecified; E78.00 Pure hypercholesterolemia, unspecified; I10 Essential (primary) hypertension; Z87.891 Personal history of nicotine dependence; Z79.899 Other long term (current) drug therapy; X58.XXXA Exposure to other specified factors, initial encounter
CPT/HCPCS: 71046; 80053; 84484; 85025; 93005

== ENCOUNTER 2021-06-10 20:54 | Emergency (ER) | payer BC | END 2021-06-10 21:54 | disposition home or self-care (01) | LOC: NAV ERS 20:54 | DX: I27.0 Primary pulmonary hypertension (principal); E66.01 Morbid (severe) obesity due to excess calories; Z79.01 Long term (current) use of anticoagulants; Z79.899 Other long term (current) drug therapy | CPT/HCPCS: 99283 ==

== ENCOUNTER 2021-07-24 09:33 | Emergency (ER) | payer BC | END 2021-07-24 11:05 | disposition home or self-care (01) | LOC: NAV ERS 09:33 | DX: T82.524A Displacement of infusion catheter, initial encounter (principal); I27.21 Secondary pulmonary arterial hypertension; E78.5 Hyperlipidemia, unspecified; I10 Essential (primary) hypertension; Z87.891 Personal history of nicotine dependence; Z79.899 Other long term (current) drug therapy | CPT/HCPCS: 71046 ==

== ENCOUNTER 2021-12-18 21:11 | Emergency (ER) | payer BC ==
[2021-12-18 21:57] LABS: #Basophils 0.1 thou/uL (0.0-0.2); #Eosinphils 0.1 thou/uL (0.0-0.7); #Lymphocytes 2.1 thou/uL (1.20-3.40); #Monocytes 0.5 thou/uL (0.11-0.59); #Neutrophils 4.4 thou/uL (1.40-6.50); %Lymphocytes 29.2 % (21.0-51.0); %Monocytes 7.1 % (0.0-10.0); %Neutrophils 60.8 % (42.0-75.0); Hemoglobin 14.4 g/dL (12.0-16.0); Mean Corpuscular HGB CONC 33.2 g/dL (32.0-36.0); Mean Corpuscular Hemoglobin 30.3 pg (27.0-31.0); Mean Corpuscular Volume 91.1 fL (78.0-98.0); Mean Platelet Volume 6.2 fL (7.4-10.4); Platelet Count 229 thou/uL (130-400); RBC Distribution Width 13.6 % (11.5-14.5); Red Blood Cell (RBC) Count 4.77 mill/uL (4.20-5.40); White Blood Cell (WBC) Count 7.2 thou/uL (4.8-10.8)
[2021-12-18 22:10] LABS: ALT (SGPT) 11 U/L (8-55); AST (SGOT) 19 U/L (5-34); Albumin 4.2 g/dL (3.5-5.0); Alkaline Phosphatase 143 U/L (40-110); Anion Gap 17 mmol/L (10-20); BUN (Urea Nitrogen) 23 mg/dL (9.8-20.1); Bilirubin, Total 0.6 mg/dL (0.2-1.2); Calc. Creatinine Clearance 0 mL/min (70-130); Calcium 8.8 mg/dL (7.8-10.44); Carbon Dioxide 20 mmol/L (22-29); Chloride 106 mmol/L (98-107); Glucose 138 mg/dL (70-105); Potassium 3.7 mmol/L (3.5-5.1); Protein, Total 7.2 g/dL (6.0-8.3); Sodium 139 mmol/L (136-145)
== END 2021-12-18 22:49 | disposition home or self-care (01) ==
LOC: NAV ERS 21:11
DX: I48.91 Unspecified atrial fibrillation (principal); I10 Essential (primary) hypertension; E78.5 Hyperlipidemia, unspecified; E78.00 Pure hypercholesterolemia, unspecified; J45.909 Unspecified asthma, uncomplicated; G47.30 Sleep apnea, unspecified; E66.9 Obesity, unspecified; Z68.45 Body mass index [BMI] 70 or greater, adult; Z87.891 Personal history of nicotine dependence; Z79.899 Other long term (current) drug therapy
CPT/HCPCS: 80053; 83880; 85025; 96374

== ENCOUNTER 2022-02-11 16:55 | Emergency (ER) | payer BC ==
[2022-02-11 17:24] LABS: #Basophils 0.1 thou/uL (0.0-0.2); #Eosinphils 0.1 thou/uL (0.0-0.7); #Lymphocytes 2.3 thou/uL (1.20-3.40); #Monocytes 0.5 thou/uL (0.11-0.59); #Neutrophils 4.1 thou/uL (1.40-6.50); %Basophils 0.9 % (0.0-1.0); %Eosinophils 1.7 % (0.0-10.0); %Monocytes 6.8 % (0.0-10.0); %Neutrophils 57.6 % (42.0-75.0); Hemoglobin 14.5 g/dL (12.0-16.0); Mean Corpuscular HGB CONC 30.9 g/dL (32.0-36.0); Mean Corpuscular Hemoglobin 28.6 pg (27.0-31.0); Mean Corpuscular Volume 92.5 fL (78.0-98.0); Mean Platelet Volume 7.4 fL (7.4-10.4); Platelet Count 219 thou/uL (130-400); RBC Distribution Width 13.4 % (11.5-14.5); Red Blood Cell (RBC) Count 5.09 mill/uL (4.20-5.40); White Blood Cell (WBC) Count 7.1 thou/uL (4.8-10.8)
[2022-02-11 17:57] LABS: ALT (SGPT) 12 U/L (8-55); AST (SGOT) 19 U/L (5-34); Albumin 4.5 g/dL (3.5-5.0); Alkaline Phosphatase 133 U/L (40-110); Anion Gap 20 mmol/L (10-20); BUN (Urea Nitrogen) 17 mg/dL (9.8-20.1); Bilirubin, Total 0.6 mg/dL (0.2-1.2); Calc. Creatinine Clearance 0 mL/min (70-130); Calcium 9.1 mg/dL (7.8-10.44); Carbon Dioxide 20 mmol/L (22-29); Chloride 106 mmol/L (98-107); Globulin 2.8 g/dL (2.4-3.5); Glucose 127 mg/dL (70-105); Lipase 60 U/L (8-78); Potassium 3.6 mmol/L (3.5-5.1); Protein, Total 7.3 g/dL (6.0-8.3); Sodium 142 mmol/L (136-145)
== END 2022-02-11 18:29 | disposition home or self-care (01) ==
LOC: NAV ERS 16:55
DX: I48.91 Unspecified atrial fibrillation (principal); I10 Essential (primary) hypertension; E78.5 Hyperlipidemia, unspecified; E78.00 Pure hypercholesterolemia, unspecified; E66.9 Obesity, unspecified; G47.30 Sleep apnea, unspecified; Z87.891 Personal history of nicotine dependence
CPT/HCPCS: 80053; 83690; 84484; 85025; 93005; 96374

== ENCOUNTER 2022-03-02 06:46 | Emergency (ER) | payer BC | END 2022-03-02 09:40 | disposition short-term general hospital (02) | LOC: NAV ERS 06:46 | DX: I27.20 Pulmonary hypertension, unspecified (principal); I48.91 Unspecified atrial fibrillation; Z87.891 Personal history of nicotine dependence | CPT/HCPCS: 71045; 93005 ==

== ENCOUNTER 2022-04-05 10:50 | Emergency (ER) | payer BC ==
[2022-04-05 11:36] LABS: #Basophils 0.1 thou/uL (0.0-0.2); #Eosinphils 0.1 thou/uL (0.0-0.7); #Lymphocytes 1.3 thou/uL (1.20-3.40); #Monocytes 0.5 thou/uL (0.11-0.59); #Neutrophils 6.4 thou/uL (1.40-6.50); %Basophils 0.7 % (0.0-1.0); %Eosinophils 1.2 % (0.0-10.0); %Lymphocytes 15.4 % (21.0-51.0); %Monocytes 5.9 % (0.0-10.0); %Neutrophils 76.8 % (42.0-75.0); Hemoglobin 13.9 g/dL (12.0-16.0); Mean Corpuscular HGB CONC 30.5 g/dL (32.0-36.0); Mean Corpuscular Hemoglobin 28.5 pg (27.0-31.0); Mean Corpuscular Volume 93.2 fL (78.0-98.0); Mean Platelet Volume 8.1 fL (7.4-10.4); Platelet Count 222 thou/uL (130-400); RBC Distribution Width 13.3 % (11.5-14.5); Red Blood Cell (RBC) Count 4.88 mill/uL (4.20-5.40); White Blood Cell (WBC) Count 8.4 thou/uL (4.8-10.8)
[2022-04-05 11:52] LABS: ALT (SGPT) 6 U/L (8-55); AST (SGOT) 13 U/L (5-34); Albumin 4.2 g/dL (3.5-5.0); Alkaline Phosphatase 116 U/L (40-110); Anion Gap 18 mmol/L (10-20); BUN (Urea Nitrogen) 14 mg/dL (9.8-20.1); Calc. Creatinine Clearance 0 mL/min (70-130); Calcium 8.9 mg/dL (7.8-10.44); Carbon Dioxide 20 mmol/L (22-29); Chloride 104 mmol/L (98-107); Globulin 2.8 g/dL (2.4-3.5); Glucose 103 mg/dL (70-105); Sodium 138 mmol/L (136-145)
== END 2022-04-05 12:30 | disposition home or self-care (01) ==
LOC: NAV ERS 10:50
DX: I48.0 Paroxysmal atrial fibrillation (principal); E78.5 Hyperlipidemia, unspecified; E78.00 Pure hypercholesterolemia, unspecified; I10 Essential (primary) hypertension; G47.30 Sleep apnea, unspecified; E66.9 Obesity, unspecified; J45.909 Unspecified asthma, uncomplicated; Z87.891 Personal history of nicotine dependence; Z79.899 Other long term (current) drug therapy
CPT/HCPCS: 80053; 84484; 85025; 93005

== ENCOUNTER 2022-06-05 17:44 | Emergency (ER) | payer BC ==
[2022-06-05 18:13] LABS: #Basophils 0.1 thou/uL (0.0-0.2); #Eosinphils 0.3 thou/uL (0.0-0.7); #Lymphocytes 1.9 thou/uL (1.20-3.40); #Monocytes 0.5 thou/uL (0.11-0.59); #Neutrophils 3.9 thou/uL (1.40-6.50); %Eosinophils 4.6 % (0.0-10.0); %Lymphocytes 28.9 % (21.0-51.0); %Monocytes 7.9 % (0.0-10.0); %Neutrophils 57.6 % (42.0-75.0); Hemoglobin 14.4 g/dL (12.0-16.0); Mean Corpuscular HGB CONC 30.7 g/dL (32.0-36.0); Mean Corpuscular Hemoglobin 27.9 pg (27.0-31.0); Mean Corpuscular Volume 90.9 fL (78.0-98.0); Mean Platelet Volume 7.5 fL (7.4-10.4); Platelet Count 221 thou/uL (130-400); RBC Distribution Width 13.5 % (11.5-14.5); Red Blood Cell (RBC) Count 5.16 mill/uL (4.20-5.40); White Blood Cell (WBC) Count 6.7 thou/uL (4.8-10.8)
[2022-06-05] MEDS ORDERED: Sodium Chloride 0.9% 500 ML ONE ×2 (18:14→19:00)
[2022-06-05] MEDS ORDERED: Adenosine 6 MG/2 ML VIAL ONE (18:14)
[2022-06-05 18:28] LABS: ALT (SGPT) 11 U/L (8-55); AST (SGOT) 15 U/L (5-34); Albumin 4.4 g/dL (3.5-5.0); Alkaline Phosphatase 115 U/L (40-110); Anion Gap 19 mmol/L (10-20); BUN (Urea Nitrogen) 14 mg/dL (9.8-20.1); Bilirubin, Total 0.8 mg/dL (0.2-1.2); Calc. Creatinine Clearance 0 mL/min (70-130); Carbon Dioxide 20 mmol/L (22-29); Chloride 103 mmol/L (98-107); Estimated GFR 36; Globulin 2.8 g/dL (2.4-3.5); Glucose 120 mg/dL (70-105); Potassium 3.8 mmol/L (3.5-5.1); Protein, Total 7.2 g/dL (6.0-8.3); Sodium 138 mmol/L (136-145)
== END 2022-06-05 19:54 | disposition home or self-care (01) ==
LOC: NAV ERS 17:44
DX: I47.1 Supraventricular tachycardia (principal); E78.5 Hyperlipidemia, unspecified; I10 Essential (primary) hypertension; Z87.891 Personal history of nicotine dependence; Z79.899 Other long term (current) drug therapy
CPT/HCPCS: 80053; 83880; 84484; 85025; 93005; 94760; 96374; J0153; J7030

== ENCOUNTER 2022-09-01 19:08 | Emergency (ER) | payer BC ==
[2022-09-01] MEDS ORDERED: Adenosine 6 MG/2 ML VIAL ONE (19:19)
== END 2022-09-01 19:50 | disposition home or self-care (01) ==
LOC: NAV ERS 19:08
DX: I47.1 Supraventricular tachycardia (principal); E78.00 Pure hypercholesterolemia, unspecified; I10 Essential (primary) hypertension; Z87.891 Personal history of nicotine dependence; Z79.899 Other long term (current) drug therapy
CPT/HCPCS: 96374; J0153

== ENCOUNTER 2022-10-14 14:37 | Emergency (ER) | payer BC ==
[2022-10-14] MEDS ORDERED: Adenosine 6 MG/2 ML VIAL ONE (14:49)
[2022-10-14 15:18] LABS: %Neutrophils 67.9 % (42.0-75.0); Hemoglobin 15.3 g/dL (12.0-16.0); Manual Diff?? NO; Mean Corpuscular HGB CONC 32.8 g/dL (32.0-36.0); Mean Corpuscular Hemoglobin 29.3 pg (27.0-31.0); Mean Corpuscular Volume 89.3 fl (78.0-98.0); Mean Platelet Volume 6.5 fL (7.4-10.4); Platelet Count 279 10x3/uL (130-400); RBC Distribution Width 12.8 % (11.5-14.5); Red Blood Cell (RBC) Count 5.22 mill/uL (4.20-5.40)
[2022-10-14 15:19] LABS: #Basophils 0.1 thou/uL (0.0-0.2); #Eosinphils 0.1 thou/uL (0.0-0.7); #Lymphocytes 1.9 thou/uL (1.20-3.40); #Monocytes 0.5 thou/uL (0.11-0.59); #Neutrophils 5.4 thou/uL (1.40-6.50); %Basophils 1.1 % (0.0-1.0); %Eosinophils 1.7 % (0.0-10.0); %Lymphocytes 23.3 % (21.0-51.0); %Monocytes 6.1 % (0.0-10.0)
[2022-10-14 15:37] LABS: ALT (SGPT) 10 U/L (8-55); AST (SGOT) 13 U/L (5-34); Albumin 4.6 g/dL (3.4-4.8); Alkaline Phosphatase 130 U/L (40-110); Anion Gap 18 mmol/L (10-20); BUN (Urea Nitrogen) 20 mg/dL (9.8-20.1); Bilirubin, Total 0.7 mg/dL (0.2-1.2); Calc. Creatinine Clearance 0 mL/min (70-130); Calcium 9.2 mg/dL (7.8-10.44); Carbon Dioxide 21 mmol/L (23-31); Chloride 104 mmol/L (98-107); Estimated GFR 32; Globulin 2.9 g/dL (2.4-3.5); Glucose 133 mg/dL (80-115); Protein, Total 7.5 g/dL (5.8-8.1); Sodium 139 mmol/L (136-145)
== END 2022-10-14 16:03 | disposition home or self-care (01) ==
LOC: NAV ERS 14:37
DX: I47.1 Supraventricular tachycardia (principal); I10 Essential (primary) hypertension; E78.00 Pure hypercholesterolemia, unspecified; E66.9 Obesity, unspecified; Z87.891 Personal history of nicotine dependence
CPT/HCPCS: 71045; 80053; 83880; 84443; 84484; 85025; 93005; 96374; J0153

== ENCOUNTER 2023-01-12 10:49 | Emergency (ER) | payer BC ==
[2023-01-12] MEDS ORDERED: Sodium Chloride 0.9% 500 ML ONE ×2 (11:24→11:38)
[2023-01-12 11:31] LABS: #Basophils 0.1 thou/uL (0.0-0.2); #Lymphocytes 0.5 thou/uL (1.20-3.40); #Monocytes 0.5 thou/uL (0.11-0.59); #Neutrophils 3.6 thou/uL (1.40-6.50); %Basophils 1.3 % (0.0-1.0); %Eosinophils 0.4 % (0.0-10.0); %Lymphocytes 10.1 % (21.0-51.0); %Monocytes 10.7 % (0.0-10.0); %Neutrophils 77.4 % (42.0-75.0); Mean Corpuscular HGB CONC 32.3 g/dL (32.0-36.0); Mean Corpuscular Hemoglobin 28.6 pg (27.0-31.0); Mean Corpuscular Volume 88.6 fl (78.0-98.0); Mean Platelet Volume 6.8 fL (7.4-10.4); Platelet Count 203 10x3/uL (130-400); RBC Distribution Width 14.1 % (11.5-14.5); Red Blood Cell (RBC) Count 4.89 mill/uL (4.20-5.40); White Blood Cell (WBC) Count 4.6 10x3/uL (4.8-10.8)
[2023-01-12] MEDS ORDERED: Cefepime 2 GM VIAL ONE (11:36)
[2023-01-12] MEDS ORDERED: Sodium Chloride 0.9% 100 ML ONE (11:37)
[2023-01-12] MEDS ORDERED: Vancomycin 1 GM VIAL ONE (11:38)
[2023-01-12 11:58] LABS: Base Excess-Venous -1.8 mmol/L (-2.0 to 3.0); Bicarbonate (HCO3v) 23.3 mmol/L (22.0-28.0); CO2 Tension (PvCO2) 40.4 mmHg (42.0-51.0); Calcium, Ionized 1.06 mmol/L (1.15-1.33); Chloride 103 mmol/L (98-107); Hemoglobin - Calc 15.5 g/dL (12.0-16.0); Potassium 4.8 mmol/L (3.5-5.1); Sodium 134 mmol/L (138-145); T. Carbon Dioxide 24.6 mmol/L (22.0-28.0); vO2 Saturation-calc 82.6 % (60.0-85.0)
[2023-01-12 12:14] LABS: ALT (SGPT) 13 U/L (8-55); AST (SGOT) 21 U/L (5-34); Albumin 4.1 g/dL (3.4-4.8); Alkaline Phosphatase 96 U/L (40-110); Anion Gap 14 mmol/L (10-20); BUN (Urea Nitrogen) 12 mg/dL (9.8-20.1); Bilirubin, Total 0.5 mg/dL (0.2-1.2); Calc. Creatinine Clearance 0 mL/min (70-130); Calcium 8.4 mg/dL (7.8-10.44); Carbon Dioxide 21 mmol/L (23-31); Chloride 103 mmol/L (98-107); Estimated GFR 50; Globulin 2.6 g/dL (2.4-3.5); Glucose 92 mg/dL (80-115); Potassium 4.1 mmol/L (3.5-5.1); Protein, Total 6.7 g/dL (5.8-8.1); Sodium 134 mmol/L (136-145)
[2023-01-12 12:38] LABS: Bilirubin Negative (Negative); Blood, Urine Negative (Negative); Clarity Clear (Clear); Glucose, Urine (Dipstick) Negative (Negative); Ketone, Urine Negative (Negative); Leukocyte Trace (Negative); Nitrite Negative (Negative); Protein, Urine (Dipstick) 30 mg/dL (Neg-Trace); pH, Urine 8.5 (5.0-9.0)
[2023-01-12 12:39] LABS: SARS-CoV-2 NAA Rapid Test Not Detected (NotDetected)
[2023-01-12 12:42] LABS: RBC/HPF 0-3 HPF (0-3); WBC/HPF 0-3 HPF (0-3)
[2023-01-12] MEDS ORDERED: Oseltamivir 75 MG CAP ONE (13:42)
== END 2023-01-12 14:45 | disposition short-term general hospital (02) ==
LOC: NAV ERS 10:49
DX: J11.1 Influenza due to unidentified influenza virus with other respiratory manifestations (principal); I27.20 Pulmonary hypertension, unspecified; I48.91 Unspecified atrial fibrillation; E78.00 Pure hypercholesterolemia, unspecified; I10 Essential (primary) hypertension; E66.9 Obesity, unspecified; G47.30 Sleep apnea, unspecified; J45.909 Unspecified asthma, uncomplicated; Z20.822 Contact with and (suspected) exposure to COVID-19; Z87.891 Personal history of nicotine dependence; Z79.01 Long term (current) use of anticoagulants; Z79.899 Other long term (current) drug therapy
CPT/HCPCS: 71045; 80053; 81003; 81015; 82330; 82803; 83605; 85014; 85025; 87040; 87086; 96365; 96366; 96368; J0692; J3370; J3490; J7030

== ENCOUNTER 2023-06-14 15:25 | Emergency (ER) | payer BC ==
[2023-06-14 16:39] LABS: #Basophils 0.1 thou/uL (0.0-0.2); #Eosinphils 0.1 thou/uL (0.0-0.7); #Lymphocytes 1.5 thou/uL (1.20-3.40); #Monocytes 0.5 thou/uL (0.11-0.59); %Basophils 0.8 % (0.0-1.0); %Eosinophils 1.7 % (0.0-10.0); %Lymphocytes 17.8 % (21.0-51.0); %Monocytes 6.4 % (0.0-10.0); %Neutrophils 73.3 % (42.0-75.0); Hematocrit 41.1 % (36.0-47.0); Hemoglobin 12.5 g/dL (12.0-16.0); Mean Corpuscular HGB CONC 30.4 g/dL (32.0-36.0); Mean Corpuscular Hemoglobin 23.9 pg (27.0-31.0); Mean Corpuscular Volume 78.8 fl (78.0-98.0); Mean Platelet Volume 6.4 fL (7.4-10.4); Platelet Count 236 10x3/uL (130-400); RBC Distribution Width 14.7 % (11.5-14.5); Red Blood Cell (RBC) Count 5.21 mill/uL (4.20-5.40); White Blood Cell (WBC) Count 8.2 10x3/uL (4.8-10.8)
[2023-06-14 16:46] LABS: PTT 25.5 sec (22.9-36.1); Prothrombin Time 13.8 sec (12.0-14.7)
[2023-06-14 16:51] LABS: ALT (SGPT) 34 U/L (8-55); AST (SGOT) 34 U/L (5-34); Albumin 3.9 g/dL (3.4-4.8); Alkaline Phosphatase 141 U/L (40-110); Anion Gap 14 mmol/L (10-20); BUN (Urea Nitrogen) 21 mg/dL (9.8-20.1); Bilirubin, Total 0.6 mg/dL (0.2-1.2); Calc. Creatinine Clearance 0 mL/min (70-130); Calcium 8.4 mg/dL (7.8-10.44); Carbon Dioxide 21 mmol/L (23-31); Chloride 106 mmol/L (98-107); Estimated GFR 30; Globulin 2.4 g/dL (2.4-3.5); Glucose 124 mg/dL (80-115); Magnesium 1.9 mg/dL (1.6-2.6); Potassium 3.7 mmol/L (3.5-5.1); Protein, Total 6.3 g/dL (5.8-8.1); Sodium 137 mmol/L (136-145)
[2023-06-14 16:52] LABS: Troponin I 0.014 ng/mL (< 0.028)
[2023-06-14 17:50] LABS: SARS-CoV-2 NAA Rapid Test Not Detected (NotDetected)
[2023-06-14] MEDS ORDERED: HYDROcodone/Acetaminophen 10/325 mg Tablet ONE (18:38)
== END 2023-06-14 20:09 | disposition home or self-care (01) ==
LOC: NAV ERS 15:25
DX: T80.818A Extravasation of other vesicant agent, initial encounter (principal); R79.1 Abnormal coagulation profile; I27.20 Pulmonary hypertension, unspecified; N28.9 Disorder of kidney and ureter, unspecified; E78.00 Pure hypercholesterolemia, unspecified; I10 Essential (primary) hypertension; E66.9 Obesity, unspecified; Z87.891 Personal history of nicotine dependence; Z79.899 Other long term (current) drug therapy; Z20.822 Contact with and (suspected) exposure to COVID-19
CPT/HCPCS: 71045; 80053; 83605; 83735; 83880; 84484; 85025; 85379; 85610; 85730; 87040; 87804; 93005; U0002

== ENCOUNTER 2024-04-25 18:50 | Emergency (ER) | payer BC ==
[2024-04-25 19:31] LABS: #Basophils 0.1 thou/uL (0.0-0.2); #Eosinphils 0.1 thou/uL (0.0-0.7); #Lymphocytes 1.1 thou/uL (1.20-3.40); #Monocytes 0.5 thou/uL (0.11-0.59); #Neutrophils 5.3 thou/uL (1.40-6.50); %Basophils 0.8 % (0.0-1.0); %Eosinophils 1.3 % (0.0-10.0); %Lymphocytes 15.6 % (21.0-51.0); %Monocytes 7.6 % (0.0-10.0); %Neutrophils 74.8 % (42.0-75.0); Hematocrit 37.2 % (36.0-47.0); Hemoglobin 11.6 g/dL (12.0-16.0); Mean Corpuscular HGB CONC 31.1 g/dL (32.0-36.0); Mean Corpuscular Hemoglobin 26.4 pg (27.0-31.0); Mean Corpuscular Volume 84.9 fl (78.0-98.0); Mean Platelet Volume 5.3 fL (7.4-10.4); Platelet Count 214 10x3/uL (130-400); RBC Distribution Width 13.6 % (11.5-14.5); Red Blood Cell (RBC) Count 4.38 mill/uL (4.20-5.40); White Blood Cell (WBC) Count 7.1 10x3/uL (4.8-10.8)
[2024-04-25] MEDS ORDERED: Cephalexin 250 MG CAP ONE (20:01)
== END 2024-04-25 20:05 | disposition home or self-care (01) ==
LOC: NAV ERS 18:50
DX: L03.116 Cellulitis of left lower limb (principal); I48.91 Unspecified atrial fibrillation; I10 Essential (primary) hypertension; Z87.891 Personal history of nicotine dependence
CPT/HCPCS: 85025; 99283

== ENCOUNTER 2024-04-30 15:53 | Outpatient (CLI) | payer BC | END 2024-04-30 15:54 | disposition home or self-care (01) | LOC: NAV CT 15:53 | PROVIDERS: ATTEND Student in an Organized Health Care Education/Training Program | DX: M25.511 Pain in right shoulder (principal) ==